=== PATIENT | female | born 1980 | race Asian ===

== ENCOUNTER 2022-08-31 15:15 | Emergency (ER) | payer OTHER ==
[~2022-08-31] VITALS: Ht 167.6 cm; Wt 76.8 kg
[2022-08-31] MEDS ORDERED: IBUPROFEN 600MG TAB PO ONE (17:40)
[2022-08-31] MEDS ORDERED: ACETAMINOPHEN TAB 650MG DOSE (2X325MG) PO ONE (17:40)
[2022-08-31] MEDS ORDERED: MUCI600T31 PO (18:34)
[2022-08-31] MEDS ORDERED: IBUP-1022 PO (18:34)
[2022-08-31] MEDS ORDERED: BENZ200C70 PO (18:34)
[2022-08-31 18:50] VITALS: BP 130/68; TEMP 98.9; O2SAT 99
== END 2022-08-31 18:51 | disposition home or self-care (01) ==
LOC: M ED 15:15
DX: J06.9 Acute upper respiratory infection, unspecified (principal); E11.9 Type 2 diabetes mellitus without complications

== ENCOUNTER 2022-11-06 19:01 | Day surgery (SDC) | payer OTHER ==
[~2022-11-06] VITALS: Ht 167.6 cm; Wt 78.3 kg
[~2022-11-06 19:01] MED LIST: BENZ200C70 PO; IBUP-1022 PO; MUCI600T31 PO
[2022-11-06 20:55] LABS: BASO # 0.1 10^3/uL (0.0-0.2); BASO % 0.5 % (0.0-1.0); EOS # 0.1 10^3/uL (0.0-0.5); EOS % 0.4 % (0.0-3.0); HEMATOCRIT 44.7 % (36.0-47.0); HEMOGLOBIN 14.8 g/dl (12.0-15.5); LYMPH # 3.2 10^3/uL (1.5-5.0); LYMPH % 26.9 % (24.0-44.0); MEAN CORPUSCULAR HGB CONC 33.1 g/dl (32.0-36.5); MEAN CORPUSCULAR VOLUME 90.5 fl (80.0-96.0); MONO # 0.6 10^3/uL (0.0-0.8); MONO % 4.9 % (2.0-8.0); PLATELET COUNT, AUTOMATED 169 10^3/uL (150-450); RED BLOOD COUNT 4.94 10^6/uL (4.00-5.40)
[2022-11-06 21:24] LABS: LIPASE 48 U/L (12-53)
[2022-11-06 21:26] LABS: ALBUMIN 4.1 G/DL (3.2-5.2); ALKALINE PHOSPHATASE 54 U/L (46-116); ALT/SGPT 84 U/L (7.0-40); AST/SGOT 30 U/L (<34); BILIRUBIN,DIRECT 0.3 MG/DL (<0.4); BILIRUBIN,TOTAL 1.1 MG/DL (0.3-1.2); BLOOD UREA NITROGEN 9 MG/DL (9-23); CALCIUM LEVEL 9.6 MG/DL (8.5-10.1); CARBON DIOXIDE LEVEL 27 MMOL/L (20-31); CHLORIDE LEVEL 103 MMOL/L (98-107); GLOMERULAR FILTRATION RATE > 60.0 (>58); GLUCOSE, FASTING 159 MG/DL (60-100); POTASSIUM SERUM 4.1 MMOL/L (3.5-5.1); SODIUM LEVEL 139 MMOL/L (136-145)
[2022-11-06 21:29] LABS: HCG, SERUM QUALITATIVE NEGATIVE (NEGATIVE)
[2022-11-06] MEDS ORDERED: ISOVUE-370 76% 100ML VIAL As Ordered ONE (23:17)
[2022-11-06] MEDS ORDERED: ONDANSETRON 4MG 2ML VIAL IV ONE (23:40)
[2022-11-06] MEDS ORDERED: NS 1,000 ML IV ONE (23:40)
[2022-11-07] VITALS (11 sets, daily range): BP systolic 142–156; BP diastolic 84–102; TEMP 96.1–97.8; O2SAT 96–100
[2022-11-07] MEDS ORDERED: PIPERACILLIN/TAZOBACTAM SOD 4.5 GM in D5W MINI-BAG PLUS 50 ML IV ONE (01:15)
[2022-11-07] MEDS ORDERED: MORPHINE 4 MG/ML 1ML VIAL IV PRN (02:10)
[2022-11-07] MEDS ORDERED: KETOROLAC 30 MG/ML 1ML VIAL IV PRN (02:10)
[2022-11-07] MEDS ORDERED: ONDANSETRON 4MG 2ML VIAL IV PRN ×2 (02:10→15:20)
[2022-11-07] MEDS: KCL 20MEQ IN D5/0.45NS 1000ML 1,000 ML IV SCH ×3 (04:14→18:10)
[2022-11-07] MEDS ORDERED: VITMTA PO (04:54)
[2022-11-07] MEDS ORDERED: MUCI600T31 PO (04:54)
[2022-11-07] MEDS ORDERED: METF750T36 PO (04:54)
[2022-11-07] MEDS ORDERED: BENZ200C70 PO (04:54)
[2022-11-07] MEDS ORDERED: IBUP1TAB6 PO (04:54)
[2022-11-07] MEDS ORDERED: HOME MED LIST COMPLETE! XX SCH (04:55)
[2022-11-07] MEDS: PIPERACILLIN/TAZOBACTAM SOD 3.375 GM in D5W MINI-BAG PLUS 50 ML IV SCH ×3 (08:26→20:14)
[2022-11-07] MEDS ORDERED: fentaNYL 100 MCG/2 ML INJECTION As Ordered ONE (12:09)
[2022-11-07] MEDS ORDERED: LIDOCAINE 2% 100MG/5ML SDV (FOR ANES.) As Ordered ONE (12:09)
[2022-11-07] MEDS ORDERED: MIDAZOLAM INJ 2MG/2ML VIAL As Ordered ONE (12:09)
[2022-11-07] MEDS ORDERED: KETOROLAC 60MG 2ML VIAL As Ordered ONE (12:10)
[2022-11-07] MEDS ORDERED: propofoL 200 MG/20 ML VIAL As Ordered ONE (12:10)
[2022-11-07] MEDS ORDERED: ROCURONIUM BROMIDE 50MG/5ML VIAL As Ordered ONE (12:10)
[2022-11-07] MEDS ORDERED: ONDANSETRON 4MG 2ML VIAL As Ordered ONE (12:10)
[2022-11-07] MEDS ORDERED: LIDOCAINE 1% SDV 30ML VIAL As Ordered ONE (12:50)
[2022-11-07] MEDS ORDERED: amLODIPine 5 MG TAB PO ONE (13:00)
[2022-11-07] MEDS ORDERED: ONDANSETRON 4MG 2ML VIAL IV ONE (13:45)
[2022-11-07] MEDS ORDERED: ZOSYN 3.375GM VIAL As Ordered ONE (14:05)
[2022-11-07] MEDS ORDERED: ACETAMINOPHEN 1000MG 100ML IV BAG As Ordered ONE (14:46)
[2022-11-07] MEDS ORDERED: SUGAMMADEX SODIUM 500 MG/5 ML VIAL (BRIDION) As Ordered ONE (14:56)
[2022-11-07] MEDS ORDERED: fentaNYL 100 MCG/2 ML INJECTION IV PRN (15:20)
[2022-11-07] MEDS ORDERED: PERCOCET 5MG/325MG TAB PO PRN (15:20)
[2022-11-07] MEDS ORDERED: METOCLOPRAMIDE INJ 10MG/2ML VIAL IV PRN (15:20)
[2022-11-07] MEDS ORDERED: HYDROMORPHONE HCL 0.5 MG/ 0.5 ML SYRINGE IV PRN (15:20)
[2022-11-07] MEDS ORDERED: INSULIN LISPRO (NovoLOG) PER UNIT SC PRN ×2 (15:20→19:25)
[2022-11-07] MEDS ORDERED: LR 1,000 ML IV SCH ×2 (15:20→19:25)
[2022-11-07] MEDS ORDERED: diphenhydrAMINE 50MG/ML VIAL IV ONE (15:45)
[2022-11-07] MEDS ORDERED: diphenhydrAMINE 50MG/ML VIAL IM ONE (15:45)
[2022-11-08] VITALS: BP 123/76; TEMP 97.1; O2SAT 95
[2022-11-08] MEDS: PIPERACILLIN/TAZOBACTAM SOD 3.375 GM in D5W MINI-BAG PLUS 50 ML IV SCH ×2 (01:33→08:18)
[2022-11-08] MEDS: KCL 20MEQ IN D5/0.45NS 1000ML 1,000 ML IV SCH (03:11)
[2022-11-08 04:00] VITALS: BP 118/72; TEMP 97; O2SAT 96
[2022-11-08 06:06] LABS: BASO % 0.1 % (0.0-1.0); HEMATOCRIT 38.6 % (36.0-47.0); LYMPH # 1.5 10^3/uL (1.5-5.0); LYMPH % 15.7 % (24.0-44.0); MEAN CORPUSCULAR HEMOGLOBIN 29.8 pg (27.0-33.0); MEAN CORPUSCULAR HGB CONC 32.6 g/dl (32.0-36.5); MEAN CORPUSCULAR VOLUME 91.3 fl (80.0-96.0); MONO # 0.3 10^3/uL (0.0-0.8); MONO % 3.3 % (2.0-8.0); NEUTROPHILS # 7.9 10^3/uL (1.5-8.5); NEUTROPHILS % 80.3 % (36.0-66.0); PLATELET COUNT, AUTOMATED 149 10^3/uL (150-450); RED BLOOD COUNT 4.23 10^6/uL (4.00-5.40); WHITE BLOOD COUNT 9.8 10^3/uL (4.0-10.0)
[2022-11-08 06:08] LABS: HEMOGLOBIN 12.6 g/dl (12.0-15.5)
[2022-11-08 06:19] LABS: BLOOD UREA NITROGEN 6 MG/DL (9-23); CALCIUM LEVEL 8.3 MG/DL (8.5-10.1); CARBON DIOXIDE LEVEL 26 MMOL/L (20-31); CHLORIDE LEVEL 104 MMOL/L (98-107); CREATININE FOR GFR 0.58 MG/DL (0.55-1.30); GLOMERULAR FILTRATION RATE > 60.0 (>58); GLUCOSE, FASTING 233 MG/DL (60-100); POTASSIUM SERUM 4.1 MMOL/L (3.5-5.1); SODIUM LEVEL 138 MMOL/L (136-145)
[2022-11-08 08:00] VITALS: BP 142/96; TEMP 97.4; O2SAT 98
[2022-11-08] MEDS ORDERED: MULTIVITAMINS/MINERALS THERAP 1 TAB PO SCH (09:00)
[2022-11-08] MEDS ORDERED: AUGM500T34 PO (09:33)
[2022-11-08] MEDS ORDERED: HYDR-3713 PO (09:33)
== END 2022-11-08 11:05 | disposition home or self-care (01) ==
LOC: M ED 19:01 → M SDC 19:02 → UNDOADMOB 11-07 02:09 → M ED INP 11-07 02:09 → M PED 11-07 05:44 → M SDC 11-08 11:05 → UNDODISOB 11-08 11:05
PROVIDERS: ATTEND Surgery
DX: K35.80 Unspecified acute appendicitis (principal); E11.9 Type 2 diabetes mellitus without complications; Z79.899 Other long term (current) drug therapy; Z79.84 Long term (current) use of oral hypoglycemic drugs; Z88.8 Allergy status to other drugs, medicaments and biological substances
CPT/HCPCS: 36415; 44970; 74177; 80048; 80076; 81001; 83690; 84703; 85025; 87086; 87635; 88304; 96365; 96366; 96367; 99284; J0131; J0665; J1100; J1200; J1885; J2250; J2405; J2543; J2765; J3010; Q9967